=== PATIENT | female | born 1950 | race Caucasian/White ===

== ENCOUNTER 2016-12-10 09:31 | Day surgery (SDC) | payer MEDICARE, BC ==
[~2016-12-10] VITALS: Ht 157.5 cm; Wt 70.5 kg
[2016-12-10] VITALS (9 sets, daily range): BP systolic 90–134; BP diastolic 44–75; PULSE 53–78; TEMP 98.1–98.4
[2016-12-10] MEDS ORDERED: PREMARIN 0.60.625 M1 PO (10:36)
[2016-12-10] MEDS ORDERED: NEXIUM 24HR20 M1 PO (10:37)
[2016-12-10] MEDS ORDERED: COMPLETE SENIOR1 TA1 PO (10:38)
[2016-12-10] MEDS ORDERED: TYLENOL 500MG500 MG PO (10:38)
[2016-12-10] MEDS ORDERED: MOTRIN 200200 MG/TAB PO (10:39)
[2016-12-10] MEDS ORDERED: CLARITIN 1010 MG/TAB PO (10:39)
[2016-12-10] MEDS ORDERED: ANTIVERT 25MG25 MG PO (10:39)
[2016-12-10] MEDS ORDERED: EXCEDRIN1 TAB PO (10:40)
[2016-12-10] MEDS ORDERED: NORCO 325 MG-7.1 TAB PO (13:35)
== END 2016-12-10 17:00 | disposition home or self-care (01) ==
LOC: SDCO 09:31
DX: K80.10 Calculus of gallbladder with chronic cholecystitis without obstruction (principal); K21.9 Gastro-esophageal reflux disease without esophagitis
CPT/HCPCS: J0690; J1100; J1885; J2270; J2405; J2704; J3010; J7120